=== PATIENT | male | born 1950 | race Caucasian/White ===

== ENCOUNTER 2018-05-10 18:44 | Inpatient (IN) | payer MEDICARE ==
[~2018-05-10] VITALS: Ht 193 cm; Wt 132.9 kg
--- NOTE | ~2018-05-10 | CON ---
[address] [address] CONSULTATION Name: DEION LEON Room: [address] IN [facility]#: [id number] Admission: 05/10/18 Attend Phys: Jaime Hutchins Discharge: Date of : 50 Report #: [id number] THIS REPORT FOR: //name// CC: RONNIE physician/PCP Andrea Arriaga DATE OF SERVICE: 05/12/2018 REASON FOR CONSULTATION: I was asked to evaluate concerning lower extremity cellulitis. HISTORY OF PRESENT ILLNESS: The patient is a 67-year-old admitted on 05/10/2018 with bilateral lower extremity edema and erythema that had increased over the last several days. He does have a history of DVT and he is on Xarelto. He has been living in his truck. He says his residency is typically in [place], but he has been here because he is out of money. No history of cardiac disease, renal disease or DVT. Placed on vancomycin with no improvement. We are asked to evaluate for further treatment. PAST MEDICAL HISTORY: Hypertension, shoulder surgery, DVT and PE. ALLERGIES: None known. MEDICATIONS: Included hydrocodone, Xarelto. Was on vancomycin and I switched him last evening to cefazolin. FAMILY HISTORY: Noncontributory. SOCIAL HISTORY: Nonsmoker, no significant alcohol intake. Denies any HIV risks. REVIEW OF SYSTEMS: Denies any other cardiopulmonary, GI or complaints. PHYSICAL EXAMINATION: VITAL SIGNS: He is afebrile, hemodynamically stable. GENERAL: Alert and cooperative and pleasant, in no acute distress. EXTREMITIES: He had 2+ lower extremity edema with venous stasis changes bilaterally. He had tinea pedis. Pulses in his feet were normal. Sensation normal. Strength in both lower extremities were normal. EYES: Without conjunctivitis or scleral icterus. NECK: Supple, with no thyromegaly or mass. LUNGS: Clear. HEART: Regular. ABDOMEN: Obese, soft and nontender with no hepatosplenomegaly or mass. He had no palpable adenopathy. SKIN: Otherwise, unremarkable without [place] [address] CONSULTATION Name: DEION LEON Room: [address] IN [facility]#: [id number] Admission: 05/10/18 Attend Phys: Jaime Huthcins Discharge: Date of : 50 Report #: [id number] LABORATORY STUDIES: Sodium 138, potassium 4.5, bicarbonate 27, creatinine 0.9. Liver function tests normal. Albumin at 2.8. Vancomycin trough was 10, hemoglobin 13.8, WBC 5.4, platelet count 200,000. Differential unremarkable. Blood cultures are pending. Ultrasound of lower extremities, chronic left femoral vein thrombus. Chest x-ray negative. IMPRESSION: A 67-year-old with known deep vein thrombosis, pulmonary embolism on anticoagulation, presents with increased peripheral edema along with venous stasis dermatitis changes, mild cellulitis changes and tinea pedis. RECOMMENDATION: We will continue with cefazolin in the next 24-48 hours. If he shows continued improvement, then would be able to continue outpatient therapy with cephalexin. Would diurese. Elevate his feet. Treat with tinea pedis with Lamisil. Also add triamcinolone for his venous stasis dermatitis. By: 1702 [id number] Call MD /nt
[~2018-05-10 18:44] MED LIST: BENADRYL25 MG PO; CARDIZEM CD240 MG PO; HYDROCODON-ACE1 EAC7 PO; MELATONIN5 M1 PO; MILK OF MA2400 MG/10 PO; MIRALAX17 GM PO; MYLANTA PO; ONDANSETRON HCL4 M2 PO; PHENERGAN 25 MG25 M1 PO; PROTONIX40 M1 PO; TYLENOL325 MG PO; XARELTO15 MG PO; Z-PACK PO
[2018-05-10 18:46] VITALS: BP 168/84
[2018-05-10 19:16] LABS: ABSOLUTE BASOPHILS 0.1 thou/uL (0.0-0.2); ABSOLUTE EOSINOPHILS 0.3 thou/uL (0.0-0.7); ABSOLUTE LYMPHOCYTES 1.4 thou/uL (0.8-5.3); ABSOLUTE MONOCYTES 0.8 thou/uL (0.0-1.2); ABSOLUTE NEUTROPHILS 3.8 thou/uL (1.6-8.1); BASOPHILS 1.1 %; EOSINOPHILS 5.1 %; HEMOGLOBIN 14.4 gm/dL (14.0-18.0); LYMPHOCYTES 22.6 %; MCH 33.8 pg (26.0-34.0); MCHC 33.5 g/dL (28.0-37.0); MCV 100.9 fL (80.0-100.0); MONOCYTES 12.2 %; NUCLEATED RBCS 0 /100WBC; PLATELET COUNT* 251 thou/uL (150-400); RBC 4.26 mil/uL (4.50-6.00); RDW-CV 17.9 % (10.5-14.5); WBC 6.4 thou/uL (4.0-11.0)
[2018-05-10 19:22] LABS: ANION GAP 6 mmol/L (7-16); BUN 11 mg/dL (7-18); CALCIUM 8.8 mg/dL (8.5-10.1); CHLORIDE 105 mmol/L (98-107); CO2 29 mmol/L (21-32); CREATININE 0.9 mg/dL (0.6-1.3); GLUCOSE 85 mg/dL (70-99); POTASSIUM 3.6 mmol/L (3.5-5.1); SODIUM 140 mmol/L (136-145)
[2018-05-10 19:33] LABS: ALKALINE PHOSPHATASE 118 U/L (46-116); NT-PRO BRAIN NAT PEPTIDE 234 pg/mL (<300); SGOT 20 U/L (15-37); SGPT 17 U/L (30-65); TOTAL BILIRUBIN 0.6 mg/dL (<0.1-1.0); TOTAL PROTEIN 6.7 g/dL (6.4-8.2); TROPONIN-I LEVEL <0.06 ng/mL (<0.06)
[2018-05-10 21:34] VITALS: BP 172/73
[2018-05-10 22:30] VITALS: BP 147/87
[2018-05-11 07:40] VITALS: BP 136/76
[2018-05-11 16:01] VITALS: BP 128/69
[2018-05-11 20:30] VITALS: BP 132/78
[2018-05-12 04:41] LABS: HEMOGLOBIN 13.8 gm/dL (14.0-18.0); MCH 33.8 pg (26.0-34.0); MCHC 32.9 g/dL (28.0-37.0); MCV 102.7 fL (80.0-100.0); MPV 9.1 fl. (7.2-11.1); RBC 4.09 mil/uL (4.50-6.00); RDW-CV 18.1 % (10.5-14.5); WBC 5.4 thou/uL (4.0-11.0)
[2018-05-12 05:56] LABS: ALBUMIN 2.8 g/dL (3.4-5.0); CALCIUM 8.8 mg/dL (8.5-10.1); CREATININE 0.9 mg/dL (0.6-1.3); POTASSIUM 5.4 mmol/L (3.5-5.1); TOTAL BILIRUBIN 0.4 mg/dL (<0.1-1.0); TOTAL PROTEIN 5.8 g/dL (6.4-8.2)
[2018-05-12 09:10] VITALS: BP 138/76
--- NOTE | 2018-05-12 12:31 | EKG ---
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 : 1950 Requested By: Crys Hogan Order Number: [id number] MD: Iftikhar Rowe Measurements Intervals Guin Rate: 61 P: -28 DE: 173 QRS: -34 QRSD: 106 T: 59 QT: 413 QTc: 416 Interpretive Statements Sinus rhythm Atrial premature complex Left axis deviation Abnormal R-wave progression, early transition Compared to ECG 12/29/2016 05:13:44 Atrial premature complex(es) now present Sinus tachycardia no longer present Electronically Signed On 05-12-2018 12:31:34 REGULATOR TESTER by Iftikhar Rowe [email or web address] <ELECTRONICALLY SIGNED> By: Iftikhar Rowe MD, FACC 05/12/18 1231 01 01 Iftikhar Rowe MD, FACC /EPI
[2018-05-12 16:00] VITALS: BP 122/71
[2018-05-12 20:00] VITALS: BP 147/85
[2018-05-12 20:44] LABS: URINE BILIRUBIN NEGATIVE (Negative); URINE BLOOD NEGATIVE (Negative); URINE CLARITY CLEAR; URINE COLOR YELLOW; URINE GLUCOSE-RANDOM NEGATIVE (Negative); URINE KETONES NEGATIVE (Negative); URINE LEUKOCYTES-REFLEX NEGATIVE (Negative); URINE NITRITE-REFLEX NEGATIVE (Negative); URINE PROTEIN NEGATIVE (Negative); URINE SPECIFIC GRAVITY 1.015 (1.005-1.030); URINE UROBILINOGEN 0.2 E.U./dl (0.2-1.0)
[2018-05-12 20:52] LABS: AMP/METHAMP Negative (Negative); BARBITURATES Negative (Negative); BENZODIAZEPINES Negative (Negative); COCAINE Negative (Negative); METHADONE Negative (Negative); OPIATES POSITIVE (Negative); PCP Negative (Negative); THC Negative (Negative)
[2018-05-13] VITALS: BP 146/75
[2018-05-13 05:06] LABS: HEMATOCRIT 43.1 % (42.0-52.0); HEMOGLOBIN 14.5 gm/dL (14.0-18.0); MCH 34.4 pg (26.0-34.0); MCHC 33.7 g/dL (28.0-37.0); MCV 102.1 fL (80.0-100.0); MPV 8.8 fl. (7.2-11.1); RBC 4.23 mil/uL (4.50-6.00); RDW-CV 17.8 % (10.5-14.5); WBC 7.1 thou/uL (4.0-11.0)
[2018-05-13 05:20] LABS: CALCIUM 8.9 mg/dL (8.5-10.1); MAGNESIUM 1.6 mg/dL (1.8-2.4); POTASSIUM 4.6 mmol/L (3.5-5.1); TOTAL BILIRUBIN 0.3 mg/dL (<0.1-1.0); TOTAL PROTEIN 6.8 g/dL (6.4-8.2)
[2018-05-13 08:13] VITALS: BP 140/81
[2018-05-13 20:30] VITALS: BP 133/84
[2018-05-14 08:49] VITALS: BP 134/63
[2018-05-14 16:00] VITALS: BP 145/80
[2018-05-14 20:20] VITALS: BP 132/82
[2018-05-15 08:30] VITALS: BP 126/84
[2018-05-15 15:56] VITALS: BP 139/80
[2018-05-15 22:10] VITALS: BP 168/77
[2018-05-16 04:18] LABS: ABSOLUTE BASOPHILS 0.1 thou/uL (0.0-0.2); ABSOLUTE EOSINOPHILS 0.5 thou/uL (0.0-0.7); ABSOLUTE LYMPHOCYTES 1.5 thou/uL (0.8-5.3); ABSOLUTE MONOCYTES 0.7 thou/uL (0.0-1.2); ABSOLUTE NEUTROPHILS 2.9 thou/uL (1.6-8.1); BASOPHILS 2.1 %; EOSINOPHILS 8.7 %; HEMATOCRIT 40.6 % (42.0-52.0); HEMOGLOBIN 13.5 gm/dL (14.0-18.0); LYMPHOCYTES 25.6 %; MCH 33.9 pg (26.0-34.0); MCHC 33.3 g/dL (28.0-37.0); MCV 101.7 fL (80.0-100.0); MONOCYTES 12.3 %; MPV 8.8 fl. (7.2-11.1); NUCLEATED RBCS 0 /100WBC; PLATELET COUNT* 209 thou/uL (150-400); POLYS 51.3 %; RBC 3.99 mil/uL (4.50-6.00); RDW-CV 17.4 % (10.5-14.5); WBC 5.7 thou/uL (4.0-11.0)
[2018-05-16 04:55] LABS: CALCIUM 8.9 mg/dL (8.5-10.1); POTASSIUM 4.5 mmol/L (3.5-5.1)
[2018-05-16 09:15] VITALS: BP 138/83
[2018-05-16 14:37] VITALS: BP 138/83
[2018-05-16] MEDS ORDERED: NORCO 5-325 TA1 EACH PO ×2 (14:59→15:01)
[2018-05-16] MEDS ORDERED: CLOTRIMAZOLE 1%15 G1 TOP (15:03)
[2018-05-16] MEDS ORDERED: CLOTRIMAZOLE-BE15 GM TOP (15:05)
[2018-05-16] MEDS ORDERED: TERAZOL VAG (15:07)
[2018-05-16] MEDS ORDERED: TRIAMCINOLONE A80 G2 TOP (15:08)
[2018-05-16] MEDS ORDERED: XARELTO20 MG PO (15:10)
[2018-05-16] MEDS ORDERED: COREG3.125 MG PO (15:12)
[2018-05-16] MEDS ORDERED: LASIX 40 MG TAB40 M2 IV PUSH (15:12)
[2018-05-16] MEDS ORDERED: MINOCIN50 MG PO (15:13)
[2018-05-16] MEDS ORDERED: LISINOPRIL2.5 MG PO (15:13)
[2018-05-16] MEDS ORDERED: KLOR-CON 10 ER10 MEQ PO (15:14)
[2018-05-16 15:20] VITALS: BP 138/83
[2018-05-16] MEDS ORDERED: LASIX 40 MG TAB40 M2 PO (15:31)
--- NOTE | 2018-05-17 14:14 | CON ---
[address] [address] CONSULTATION Name: DEION LEON Room: [address] IN [facility].#: [id number] Admission: 05/10/18 Attend Phys: Jaime Hutchins Discharge: 05/16/18 Date of : 50 Report #: [id number] THIS REPORT FOR: //name// CC: RONNIE physician/PCP Andrea Arriaga DATE OF SERVICE: 05/15/2018 CHIEF COMPLAINT: Followup of bilateral lower extremity cellulitis with venous insufficiency and foot pain. The patient is on parenteral cefazolin with good tolerance. He has been afebrile, denies constitutional symptoms. He does minimal walking to the restroom at this point. He had difficulty tolerating the below-knee Tubigrips stockinettes due to pain from the compression. There are no new labs for review. PHYSICAL EXAMINATION: EXTREMITIES: Decreased erythema to both legs with resolving cellulitis. No blisters or open lesions. 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 I can palpate his dorsalis pedis and posterior tibial pulses bilaterally. He has advanced tinea pedis and onychomycosis. He has rigid hammertoe deformities to both feet. Negative Homans' or Blanco's sign. IMPRESSION: Cellulitis bilateral lower extremities, onychomycosis, tinea pedis, plantar fasciitis. PLAN: Recommend continuing compression with Tubigrips and antibiotics. Continue topical antifungal to feet b.i.d. I cannot institute aggressive physical therapy for the plantar fasciitis due to the cellulitis and pain. I will follow during his hospitalization. <ELECTRONICALLY SIGNED> By: Anthony Avila DPM 05/17/18 1414 0819 [id number] Avila DPM /nt
--- NOTE | 2018-05-17 14:14 | CON ---
[address] [address] CONSULTATION Name: DEION LEON Room: [address]#: [id number] Admission: 05/10/18 Attend Phys: Jaime Hutchins Discharge: 05/16/18 Date of : 50 Report #: [id number] THIS REPORT FOR: //name// CC: RONNIE physician/PCP Andrea Arriaga DATE OF SERVICE: 05/14/2018 REASON FOR CONSULTATION: Bilateral lower extremity cellulitis with foot pain. CHIEF COMPLIANT AND HISTORY OF PRESENT ILLNESS: A 67-year-old male presented to the ER with bilateral lower extremity edema and inflammation of 2 days' duration. He has a history of blood clots. He is homeless, living out of his car. He denies chest pain or shortness of breath. He is on parenteral cefazolin with good tolerance. Blood cultures negative x 2. Venous Doppler negative for DVT, chronic left femoral vein thrombus with no evidence of right leg venous thrombus. Venous ultrasound significant for persistent chronic left femoral vein thrombus. No right lower extremity thrombus. PAST MEDICAL HISTORY: Pulmonary embolism, cardiac dysrhythmia, cellulitis, DVT, dyspnea on exertion, hypokalemia, hypomagnesemia, pulmonary embolism. ALLERGIES: No known drug allergies. LABORATORY DATA: WBC 7.1, RBC 4.23, hemoglobin 14.5, hematocrit 43.1, platelets 214. BUN is 13, creatinine 1.0, glucose 85. PHYSICAL EXAMINATION: Both lower extremities are significantly inflamed consistent with a fairly high-grade cellulitis. There are chronic venous stasis changes with hemosiderosis and low grade lipodermatosclerosis. No popliteal adenopathy, negative Homans' or Blanco sign to either extremity, severely dystrophic toenails consistent with onychomycosis bilaterally, hallux valgus and rigid hammertoe deformities bilaterally. Focal pain to the right plantar medial calcaneus near the plantar fascial insertion. No pain with lateral compression of the calcaneal tuberosity bilaterally. Soreness along the medial plantar aponeurosis to both feet, right is worse. Full strength to all muscles, crossing the feet and ankles bilaterally. No open lesions or blisters to either extremity or foot. Advanced tinea pedis to the plantar feet bilaterally. IMPRESSION: Cellulitis, bilateral lower extremities, onychomycosis, tinea pedis, plantar fasciitis, hammertoe and hallux valgus deformities. PLAN: I do not recommend any treatment for the plantar fasciitis until the cellulitis is decreased. I prescribed a topical antifungal lotion to the feet daily as well as below the knee Tubigrips stockinettes [place] [address] CONSULTATION Name: DEION LEON Room: [address] IN .R.#: [id number] Admission: 05/10/18 Attend Phys: Jaime Hutchins Discharge: 05/16/18 Date of : 50 Report #: [id number] will follow the patient tomorrow, and hopefully, we can initiate some physical therapy and address the right plantar fascitis. <ELECTRONICALLY SIGNED> By: Anthony Avila DPM 05/17/18 1414 0853 [id number] Avila DPM /nt
== END 2018-05-16 16:30 | DRG 602 ==
LOC: M.ERS 18:44 → M.3W 20:43 → M.TBA-ER 20:43 → M.3W 21:26
PROVIDERS: Family Medicine; Internal Medicine; Physician Assistant; ADMIT Internal Medicine
DX: L03.116 Cellulitis of left lower limb (principal); I50.33 Acute on chronic diastolic (congestive) heart failure; E44.1 Mild protein-calorie malnutrition; I11.0 Hypertensive heart disease with heart failure; L03.115 Cellulitis of right lower limb; I87.2 Venous insufficiency (chronic) (peripheral); B35.1 Tinea unguium; M20.42 Other hammer toe(s) (acquired), left foot; M20.41 Other hammer toe(s) (acquired), right foot; M20.12 Hallux valgus (acquired), left foot; M20.11 Hallux valgus (acquired), right foot; E66.01 Morbid (severe) obesity due to excess calories; D75.89 Other specified diseases of blood and blood-forming organs; B35.3 Tinea pedis; Z86.718 Personal history of other venous thrombosis and embolism; Z68.35 Body mass index [BMI] 35.0-35.9, adult; Z86.711 Personal history of pulmonary embolism; Z79.01 Long term (current) use of anticoagulants; Z59.0 Homelessness; Z28.21 Immunization not carried out because of patient refusal

== ENCOUNTER 2018-05-23 20:16 | Inpatient (IN) | payer MEDICARE ==
[~2018-05-23] VITALS: Ht 193 cm; Wt 123.4 kg
--- NOTE | ~2018-05-23 | CON ---
[address] [address] CONSULTATION Name: DEION LEON Room: [address] IN .R.#: [id number] Admission: 05/23/18 Attend Phys: Katja Roger Discharge: Date of : 50 Report #: [id number] THIS REPORT FOR: //name// CC: RONNIE physician/PCP Marshal Enriquez CHIEF COMPLAINT: Status post ORIF, left femur from recent fall. HISTORY OF PRESENT ILLNESS: He has a history of bilateral lower extremity cellulitis. I was consulted to debride his toenails. PHYSICAL EXAMINATION: Toenails are thick and dystrophic bilaterally, consistent with onychomycosis. No paronychia noted. 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 Palpable pedis and posterior tibial pulses bilaterally. IMPRESSION: Onychomycosis, type 2 diabetes mellitus, resolving venous insufficiency and recent cellulitis to bilateral lower extremities. PLAN: Toenails were manually mechanically debrided x 10. By: 1620 [id number] Avila DPM /daphney
[~2018-05-23 20:16] MED LIST changes: +CLOTRIMAZOLE 1%15 G1 TOP; +CLOTRIMAZOLE-BE15 GM TOP; +COREG3.125 MG PO; +KLOR-CON 10 ER10 MEQ PO; +LASIX 40 MG TAB40 M2 IV PUSH; +LASIX 40 MG TAB40 M2 PO; +LISINOPRIL2.5 MG PO; +MINOCIN50 MG PO; +NORCO 5-325 TA1 EACH PO; +TERAZOL VAG; +TRIAMCINOLONE A80 G2 TOP; +XARELTO20 MG PO
[2018-05-23 20:18] VITALS: BP 141/71
[2018-05-23 20:52] LABS: ABSOLUTE BASOPHILS 0.1 thou/uL (0.0-0.2); ABSOLUTE EOSINOPHILS 0.4 thou/uL (0.0-0.7); ABSOLUTE LYMPHOCYTES 1.8 thou/uL (0.8-5.3); ABSOLUTE MONOCYTES 0.6 thou/uL (0.0-1.2); ABSOLUTE NEUTROPHILS 6.9 thou/uL (1.6-8.1); BASOPHILS 0.8 %; EOSINOPHILS 4.4 %; HEMATOCRIT 43.8 % (42.0-52.0); HEMOGLOBIN 14.9 gm/dL (14.0-18.0); LYMPHOCYTES 18.6 %; MCH 33.6 pg (26.0-34.0); MCHC 33.9 g/dL (28.0-37.0); MCV 99.2 fL (80.0-100.0); MONOCYTES 6.5 %; MPV 9.1 fl. (7.2-11.1); NUCLEATED RBCS 0 /100WBC; PLATELET COUNT* 246 thou/uL (150-400); POLYS 69.7 %; RBC 4.41 mil/uL (4.50-6.00); RDW-CV 16.3 % (10.5-14.5); WBC 9.8 thou/uL (4.0-11.0)
[2018-05-23 21:00] LABS: INR 1.4; PROTIME 14.2 Seconds (9.20-11.50)
[2018-05-23 21:05] LABS: CALCIUM 8.5 mg/dL (8.5-10.1); CREATININE 1.1 mg/dL (0.6-1.3); POTASSIUM 3.6 mmol/L (3.5-5.1)
[2018-05-23 21:09] LABS: ALBUMIN 3.3 g/dL (3.4-5.0); TOTAL BILIRUBIN 0.2 mg/dL (<0.1-1.0); TOTAL PROTEIN 7.1 g/dL (6.4-8.2)
[2018-05-23 22:45] VITALS: BP 173/75
[2018-05-23 23:15] VITALS: BP 160/74
--- NOTE | 2018-05-24 02:01 | NUR ---
ASSUMED CARE OF PATIENT FROM ER. ADMISSION COMPLETE. C/O PAIN THAT IS UNCONTROLLED AND HAS NOT GOTTEN BETTER. DR CORMIER NOTIFIED, ORDERS RECIEVED FOR PO MEDS. GIVEN INDICATED. PATIENT MORE RELAXED AND SLEEPING NOW. POC GOALS DISCUSSED. ORTHO TO BE CONSULTED IN AM. WILL CONTINUE TO MONITOR.
[2018-05-24 04:00] VITALS: BP 144/74
[2018-05-24 08:15] VITALS: BP 135/78
[2018-05-24 12:19] VITALS: BP 135/62
--- NOTE | 2018-05-24 15:22 | NUR ---
Pt is A&O. Pt was dc from this hospital last week to [facility] for skilled. CM spoke with Alison from [facility], they are able to accept Pt back at [facility]. Pt is normally independent and homeless, Pt reports staying in his truck. No DME. No hx of HH. Hx of skilled at [facility]. Pt states that he is in too much pain right now to try and figure out what he will do at [facility], Pt anticipates surgery at some point. Following.
[2018-05-24 16:00] VITALS: BP 124/70
--- NOTE | 2018-05-24 19:05 | NUR ---
I ASSUMED CARE OF THE PATIENT AT 0700. HE IS ALERT AND ORIENTED X4. PATIENT HAS A SKEWED SINCE OF HUMOR AND IS INAPPROPRIATE. FIELD STICK WAS REPLACED WITH A NEW IV. HE IS SINUS RHYTHM ON THE MONITOR. VITALS ARE STABLE. PATIENT IS BEDBOUND AFTER A FALL AT [facility] AND IS SCHEDULED TENATIVELY FOR SURGERY ON 12/6 IN THE AFTERNOON. HIS PAIN IS NOT MANAGED WELL WITH MULTIPLE PRN MEDS. BLOOD THINNERS ARE D/C'D UNTIL POST SURGERY. HE IS ON ROOM AIR. PATIENT USES A URINAL. HOURLY ROUNDING WAS COMPLETED AND PATIENT NEEDS ARE MET. WILL CONTINUE TO MONITOR. PATIENT IS NPO AT MIDNIGHT.
--- NOTE | 2018-05-24 19:12 | NUR ---
ORTHO WAS CONSULTED AND CAME TO SEE THE PATIENT. TENATIVE SURGERY SCHEDULED FOR 05/25 BETWEEN 1430 AND 1500. [facility] WAS NOTIFIED AFTER REQUESTING AN UPDATE. MESSAGE WAS RECEIVED BY DR TRINH.
[2018-05-24 20:00] VITALS: BP 145/79
[2018-05-25] VITALS (7 sets, daily range): BP systolic 105–134; BP diastolic 55–70
--- NOTE | 2018-05-25 04:50 | NUR ---
ASSUMED CARE OF PT AFTER REPORT AT 1930. PT A&OX4. VSS. PHYSICAL ASSESSMENT COMPLETED AND CHARTED. PT ON RA WITH 98% O2 SAT. PT TRACING SR/1ST DEG/PAC ON TELE. PT COMPLAINED OF RIGHT HIP PAIN WITH PAIN SCALE OF 10/10-PAIN MEDS GIVEN PER MAR. INSTRUCTED ON NPO POST MIDNIGHT FOR SURGERY TODAY. COMMUNICATES UNDERSTANDING. CALL LIGHT WITHIN REACH. BED IN LOW POSITION.
[2018-05-25 04:55] LABS: HEMATOCRIT 32.5 % (42.0-52.0)
[2018-05-25 05:03] LABS: HEMOGLOBIN 10.9 gm/dL (14.0-18.0)
--- NOTE | 2018-05-25 10:07 | NUR ---
ASSUMED CARE OF PT THIS AM AROUND 0715- ASSIGNER IN PLACE ORDERED, TRACING SR WITH PVC'S- UPON ASSESSMENT PT NOTED TO BE RESTING IN BED, WATCHING TV- BED REST IN PLACE WITH Q 2 HOUR TURNS INDICATED- CONTINENT OF BOWEL AND BLADDER- DIMINISHED LUNG SOUNDS NOTED, RESP EVEN AND UN-LABORED- VSS, O2 SAT 985 ON RA-ABDOMEN SOFT/ROUND/NON-TENDER, BS X 4 QUADS- LAST BM REPORTED 05/23/18- IV NOTED TO LEFT FA INTACT, IVF INFUSSING PRESCRIBED- PT RONAL NPO FOR PLANNED SURGERY TO RIGHT FEMUR FX- PT C/O PAIN THIS AM 10/10 TO RIGHT LEG AND HIP- PRN MORPHINE GIVEN AT 0843- CALL LIGHT AND PERSONAL BELONGINGS WITH IN REACH- HOURLY ROUNDS IN PLACE R/T SAFETY/NEEDS- ALL NEEDS MET AT THIS TIME-WCTM
--- NOTE | 2018-05-25 15:24 | NUR ---
PT TAKEN DOWN FOR SURGERY THIS SHIFT AT 1320 VIA BED- PT TO BE TRANSFERED TO [facility] POST SURGERY FOR NOTED MS STATUS- BELONGINGS PACKED AND TAKEN TO ROOM 110 WHERE HE IS TO BE TRANSFERED PER TECH-REPORT CALLED TO JULIUS REYES AT 1525 WITH ALL QUESTIONS AND CONCERNS ADDRESSED
--- NOTE | 2018-05-25 16:50 | NUR ---
PT TO ROOM 110 VIA BED. PT CONFUSED. CALL LIGHT AND URINAL WITHIN REACH. BED ALARM ON. DRESSINGS CDI. CONTINUOUS PULSE OX ON
[2018-05-26] VITALS: BP 127/60
--- NOTE | 2018-05-26 00:24 | NUR ---
Assumed patient care at 1900. Patient alert and oriented times four. Asked if he needed to be closer to the nursing station so that he could receive more prompt service, informed patient that the staff had been with other patients and that we were being as prompt as we could. Offered to buy staff drinks, tried to convince staff to take his debit card to get him items from the gas station or the vending machine. Patient education done that staff was not going to take his debit card or buying him things. monument erector completed as documented. No complaints of nausea, eating reg diet at this time.
[2018-05-26 03:56] LABS: HEMATOCRIT 28.2 % (42.0-52.0); HEMOGLOBIN 9.5 gm/dL (14.0-18.0)
[2018-05-26 04:00] VITALS: BP 126/67
--- NOTE | 2018-05-26 05:09 | NUR ---
PATIENT REMAINS ALERT AND ORIENTED TIMES FOUR. DID NOT SLEEP MUCH THROUGH THE NIGHT, CALLED OUT FOR PAIN MEDICATION Q2H. MANAGED WITH ORAL PAIN MEDICATION THROUGH THE NIGHT. USES URINAL INDEPENDENTLY. STATES "THIS BLOOD DRAW STUFF HAS GOT TO END, I WILL SPEAK TO THE DR TODAY" FALL RISK PRECAUTIONS IN PLACE. HOURLY ROUNDING COMPLETED DOCUMENTED.
--- NOTE | 2018-05-26 07:34 | OP ---
[address] [address] OPERATIVE REPORT Name: DEION LEON Room: [address] IN [facility]#: [id number] Admission: 05/23/18 Attend Phys: Katja Roger Discharge: Date of : 50 Report #: [id number] THIS REPORT FOR: //name// CC: RONNIE physician/PCP Marshal Enriquez DATE OF SERVICE: 05/25/2018 PREOPERATIVE DIAGNOSIS: Complex subtrochanteric right femur fracture. POSTOPERATIVE DIAGNOSIS: Complex subtrochanteric right femur fracture. OPERATION PERFORMED: 1. Open reduction and internal fixation of a complex subtrochanteric right femur fracture with a long cephalomedullary natahniel. 2. Physician directed fluoroscopy by Dr. Yo under one hour. SURGEON: Pankaj Yo DO. SUPPORT GROUP MANAGER: Davey. SECOND SYSTEMS SOFTWARE MANAGER: Brayden. ANESTHESIA: General. GROSS PATHOLOGY: This was a severely comminuted subtrochanteric fracture of the right femur. This is complex as the patient's BMI is approximately 44. The complexity of fracture required the long cephalomedullary nathaniel instead of the standard nathaniel. IMPLANTS UTILIZED: [place] gamma nathaniel right long, 400 mm. DESCRIPTION OF PROCEDURE: The patient was brought to the operating room where general anesthetic was administered. Preoperative antibiotics were given. The patient was placed on the fracture table. The fracture was reduced, but displacement did persist and was addressed later. Hibiclens scrub was done of the right hip, leg in the usual manner and prep, the patient was draped in a sterile manner. An incision made approximately 3 inches in the greater trochanteric area. It was carried down through the skin and subcuticular material by sharp and blunt dissection, the greater trochanter is identified. It is quite deep in nature, but could be reached. The starting awl was utilized to make a hole in the greater trochanter in the usual position. The guidewire was then placed in this hole to a very slight degree. The incision was made in the area where the lag screw will go in, which was further utilized using the [place] to reduce this as well as manually reducing the femur with the neck head. It was viewed with the C-arm and noted to be in good position [place] [address] OPERATIVE REPORT Name: DEION LEON Room: [address] IN [facility]#: [id number] Admission: 05/23/18 Attend Phys: Katja Roger Discharge: Date of : 50 Report #: [id number] was then passed down to the areas at the superior pole of patella. Measurements were taken of the nathaniel for the length at this stage. The femur was then reamed with increasing size to 13 mm in the shaft and then reamed to 15.5 mm to the lesser trochanter. The long cephalomedullary nathaniel was assembled, passed over the guidewire to the appropriate depth. The guidewire was then removed. The incision is lengthened in the area for the lag screw. The guide was placed down to the bone. The guidewire was inserted into the femoral neck and head to the appropriate depth, measurements were taken. The reamer was used to ream over the guidewire. The lag screw was then placed over the guidewire. The proximal set screw was then tightened into the lag screw, not tightened completely at this stage is then the fracture site was compressed which further reduced it nicely. The set screw was tightened and backed off a quarter of a turn. The inserting device is removed through 2 small incisions utilizing the perfect [place] technique transverse screws x 2 were placed across the distal portion of the femur nathaniel two small incisions. Again, the C-arm was utilized with final pictures revealing acceptable position of the fracture site and implant devices. The deep tissues were closed ____ Vicryl suture, subcutaneous with 2-0 Vicryl and mckinley on the skin. The areas were anesthetized with Marcaine, approximately 30 mL of 0.5% plain. The wounds were thoroughly irrigated throughout the entire procedure. The needle and sponge counts were reported as correct. After sterile dressings were applied the patient was transferred to recovery room in good condition. Blood loss was approximately 400 mL. <ELECTRONICALLY SIGNED> By: Georges Cota DO 05/26/18 0734 1551 1633Pankaj Yo DO /daphney
[2018-05-26 08:30] VITALS: BP 103/54
[2018-05-26 15:26] VITALS: BP 96/51
--- NOTE | 2018-05-26 16:31 | NUR ---
PT REMAINED ALERT AND ORIENTED. PT C.O PAIN, HYDROCODONE AND OXYCODONE GIVEN ORDERED. PT WORKED WITH THERAPY TODAY TO GET UP IN BED. DRESSING TO RT HIP IS DRY AND INTACT. POSSIBLE DC TO [facility] TOMORROW. ORTHO SIGNED OFF. PT BLOOD PRESSURE AT DINNER TIME WAS 96/51, COREG WAS HELD. FALL RISK PRECAUTIONS IN PLACE. HOURLY ROUNDING COMPLETED. WILL CONTINUE TO MONITOR.
--- NOTE | 2018-05-26 17:18 | NUR ---
NOTIFIED JOSEPH [phone] ,THAT PT.MAY BE READY TO RETURN TO [facility] TOMORROW. SHE SAID TO HAVE NURSING OR CASE MANAGEMENT CALL HER ON ABOVE NUMBER.
[2018-05-26 21:55] VITALS: BP 111/59
[2018-05-26 23:58] VITALS: BP 96/57
[2018-05-27 03:07] LABS: HEMATOCRIT 24.6 % (42.0-52.0); HEMOGLOBIN 8.4 gm/dL (14.0-18.0); MCH 33.6 pg (26.0-34.0); MCV 98.9 fL (80.0-100.0); RBC 2.48 mil/uL (4.50-6.00); RDW-CV 16.1 % (10.5-14.5); WBC 8.6 thou/uL (4.0-11.0)
[2018-05-27 03:24] LABS: CALCIUM 8.2 mg/dL (8.5-10.1); CREATININE 1.3 mg/dL (0.6-1.3); POTASSIUM 3.6 mmol/L (3.5-5.1)
[2018-05-27 05:00] VITALS: BP 110/59
--- NOTE | 2018-05-27 06:57 | NUR ---
PATIENT HAS SLEPT OFF AND ON DURING THE NIGHT. PAIN CONTROLLED WITH ORAL PAIN MEDICATIONS. VSS ON RA. PATIENT REFUSING TURNS BUT DOES REPOSITION SELF. PATIENT HAS REFUSED TO GET UP. DRESSING TO RIGHT LEG IS C/D/I. PATIENT USING BEDSIDE URINAL. PATIENT HAS BEEN HATEFUL AND DEMEANING TOWARDS NURSING STAFF. PATIENT INSTRUCTED TO USE CALL LIGHT WHEN NEEDING ASSISTANCE. HOURLY ROUNDS MADE. WILL CONTINUE WITH PLAN OF CARE AND NURSING TO MONITOR.
[2018-05-27 08:00] VITALS: BP 113/58
--- NOTE | 2018-05-27 11:25 | NUR ---
PT HAD PHYSICAL THERAPY COME SEE HIM TODAY, PT GOAL WAS TO GET TO SIT ON EDGE OF BED. PT GOT 1 FOOT OFF BED AND REFUSED ANY FURTHER. PT HAS REFUSED Q2 TURNS, PT STATES REPOSITIONS SELF. PT COULD BENEFIT FROM [facility], HOWEVER PT STATES THEY DO NOT WANT ONE AND PREFER FEELING EDGE OF BED. FALL RISK PRECAUTIONS IN PLACE. HOURLY ROUNDING COMPLETED. WILL CONTINUE TO MONITOR.
--- NOTE | 2018-05-27 12:23 | NUR ---
OUMAR dicussed dc planning with Dr Benitez and pt nurse; pt not ready to dc today due to low hemoglobin level but possibility for dc on Tuesday. Pt to dc back to [facility]; OUMAR called and spoke with Alison with facility and Alison approved for pt to admit there on Tuesday if pt ready to dc, to call Alison at [phone] and she will arrange; final orders and med list to be faxed to Alison at time of dc [phone].
--- NOTE | 2018-05-27 12:41 | NUR ---
PT TRANSFERRING TO 3W. REPORT GIVEN TO NEW NURSE. PT BELONINGS GATHERED. MEDS GIVEN BEFORE TRANSFER. FALL RISK PRECAUTIONS IN PLACE. HOURLY ROUNDING COMPLETED. PT WENT UP VIA BED.
[2018-05-27 16:07] VITALS: BP 119/60
--- NOTE | 2018-05-27 16:24 | NUR ---
ASSESSMENT COMPLETE. PT ALERT AND ORIENTED X4. PT IS IRRITABLE AND NON COMPLIANT. PT REPORTS 10/10 PAIN WHENEVER ASKED. PRN PAIN MEDICATION GIVEN AND ICE APPLIED. PT TO DC TOMORROW IF [facility] IMPROVES. DRESSINGS TO RIGHT LEG C/D/I. PT IS ON ROOM AIR, VITALS STABLE. SEE ASSESSMENT AND VITALS FOR OTHER DETAILS. CALL LIGHT WITHIN REACH, WILL CONTINUE PLAN OF CARE
[2018-05-27 21:55] VITALS: BP 112/57
[2018-05-27 23:58] VITALS: BP 116/61
[2018-05-28 04:34] VITALS: BP 113/62
[2018-05-28 05:19] LABS: HEMATOCRIT 25.8 % (42.0-52.0); HEMOGLOBIN 8.7 gm/dL (14.0-18.0); MCH 33.8 pg (26.0-34.0); MCHC 33.7 g/dL (28.0-37.0); MCV 100.3 fL (80.0-100.0); MPV 8.9 fl. (7.2-11.1); RBC 2.57 mil/uL (4.50-6.00); RDW-CV 15.8 % (10.5-14.5); WBC 8.7 thou/uL (4.0-11.0)
[2018-05-28 05:46] LABS: CALCIUM 8.3 mg/dL (8.5-10.1); CREATININE 0.9 mg/dL (0.6-1.3); POTASSIUM 3.7 mmol/L (3.5-5.1)
--- NOTE | 2018-05-28 06:45 | NUR ---
ALERT AND ORIENTED X4. PATIENT STATED HE IS MOVING SELF AND REFUSED ASSIST WITH TURNING. DRESSINGS DRY AND INTACT OVER LEFT HIP. C/O ALOT OF PAIN AND PAIN MEDICATION GIVEN APROXIMATELY EVERY 4 HOURS. IV LEAKING AND D/C. VOIDING WITHOUT DIFFICULTY. CALL LIGHT WITHIN REACH.
[2018-05-28 08:47] VITALS: BP 138/74
[2018-05-28] MEDS ORDERED: LIPITOR 20 MG T20 M1 PO (11:07)
[2018-05-28] MEDS ORDERED: NEXIUM40 MG PO (11:08)
[2018-05-28] MEDS ORDERED: THERA M PLUS T1 EAC2 PO (11:08)
[2018-05-28] MEDS ORDERED: SENNA PLUS TAB1 EACH PO (11:08)
--- NOTE | 2018-05-28 14:47 | NUR ---
0700 assumed care of pt. Pt in bed resting, is able to make needs known, c/o 10/10 pain, PRN pain med ordered for Q4H, this nurse not able to give until around 1000. Pt unhappy, states, "Maybe I will just find someone to give me some aspirin, and I wont tell anyone," I educated pt regarding medication he was receiving and the need to be cautious regarding other medications. This nurse offered other pain relieving options, but pt refused. Pt remained unhappy. Will cont to monitor, hourly rounding maintained.
[2018-05-28 15:36] VITALS: BP 138/74
--- NOTE | 2018-05-28 16:48 | NUR ---
7620 Pt discharged via wheelchair by [facility] to [facility]. Transferred to wheelchair with assist x3. Pt not pleased with having to leave hospital, stating, "I dont feel like I can do this today," This nurse provided cont education regarding LE care after femur fracture.Pt expressed understanding. Pt cont to c/o pain in Leg. Paperwork given to [facility]. Report called to [facility] @ [phone] Rehab nurse.
== END 2018-05-28 17:00 | DRG 481 ==
LOC: M.ERS 20:16 → M.TBA-ER 21:57 → M.2W 21:57 → M.ORTHSURG 05-25 15:26 → M.3W 05-27 13:51
PROVIDERS: Emergency Medicine; Family Medicine; Orthopaedic Surgery; ADMIT Internal Medicine
PROC: 0QS604Z Reposition Right Upper Femur with Internal Fixation Device, Open Approach (ICD-10-PCS; principal; 2018-05-25)
PROC: 0HBRXZZ Excision of Toe Nail, External Approach (ICD-10-PCS; 2018-05-26)
DX: S72.21XA Displaced subtrochanteric fracture of right femur, initial encounter for closed fracture (principal); D68.59 Other primary thrombophilia; I50.32 Chronic diastolic (congestive) heart failure; D62 Acute posthemorrhagic anemia; B35.1 Tinea unguium; I87.2 Venous insufficiency (chronic) (peripheral); W18.30XA Fall on same level, unspecified, initial encounter; I73.9 Peripheral vascular disease, unspecified; R73.9 Hyperglycemia, unspecified; M16.11 Unilateral primary osteoarthritis, right hip; I11.0 Hypertensive heart disease with heart failure; K59.00 Constipation, unspecified; Y93.89 Activity, other specified; Y92.89 Other specified places as the place of occurrence of the external cause; Y99.8 Other external cause status; Z86.718 Personal history of other venous thrombosis and embolism; Z86.711 Personal history of pulmonary embolism; Z79.01 Long term (current) use of anticoagulants; Z79.899 Other long term (current) drug therapy